=== PATIENT | male | born 1965 | race Two or more races ===

== ENCOUNTER → 2023-09-22 | Emergency (ER) | payer MEDICARE, MEDICAID ==
[~2023-09-22] VITALS: Ht 177.8 cm; Wt 160.0 kg
[2023-09-22 16:11] VITALS: BP 151/88; PULSE 70; RESP 24; O2SAT 92
== END | disposition left against medical advice (07) ==
LOC: ER 15:34 → EDBD 15:34
DX: R04.0 Epistaxis (principal); Z53.21 Procedure and treatment not carried out due to patient leaving prior to being seen by health care provider